=== PATIENT | female | born 1985 | race American Indian/Alaskan Native ===

== ENCOUNTER 2017-09-04 08:30 | Emergency (ER) | payer SELFPAY ==
[2017-09-04 08:43] VITALS: BP 119/69
--- NOTE | 2017-09-04 09:33 | Emergency Department Report ---
Chief Complaint: Headache Stated Complaint: MIGRAINE HEADACHE Time Seen by Provider: 09/04/17 09:20 - HPI History of Present Illness: 32-year-old female presents to the emergency department with complaint of intermittent headaches over the past 3 weeks. The patient seems to think that it is related to mold that she has in her apartment. When she spends night at another person's house or her parents house, she does not have headaches but then as soon as she returns to her home she developed some. They are frontal and bitemporal and often very intense. Sometimes is associated with some blurry vision and today she had an episode of nausea and vomiting. The patient also has a sore throat and her daughter was recently diagnosed with strep. The patient herself denies any past medical history. She has been taking some Goody's powder and Tylenol for her headaches which only works transiently, if at all. - ROS Review of Systems: Positive for headache, intermittent blurry vision, nausea with vomiting, sore throat Negative for chest pain, shortness of breath, rash, eye pain or any neurological deficits. - Exam Vital Signs: Vital Signs 09/04/17 08:34 Temperature 98.6 F Pulse Rate 92 H Respiratory 16 Rate Blood Pressure 119/69 O2 Sat by Pulse 100 Oximetry Physical Exam: Pupils equal reactive to light bilaterally. Extraocular motion intact. Oropharynx appears clear. She has a slightly raspy voice. Heart and lungs are normal auscultation. MSE screening note: Focused history and physical exam performed. Due to findings the following was ordered: I will order a urine test so that a CT scan of the head without contrast can be done secondary to the three-week history of headaches with some associated blurry vision. ED Disposition for MSE Condition: Stable Referrals: PRIMARY CARE, [Primary Care Provider] - 3-5 Days
[2017-09-04 10:04] LABS: HCG Qualitative,Urine Negative (Negative)
--- NOTE | 2017-09-04 10:04 | Emergency Department Report ---
ED Headache HPI - General Chief Complaint: Headache Stated Complaint: MIGRAINE HEADACHE Time Seen by Provider: 09/04/17 09:20 Source: patient, family - History of Present Illness Initial Comments: 32-year-old female presents to the emergency department with complaint of intermittent headaches over the past 3 weeks. The patient seems to think that it is related to mold that she has in her apartment. When she spends night at another person's house or her parents house, she does not have headaches but then as soon as she returns to her home she developed some. They are frontal and bitemporal and often very intense. Sometimes is associated with some blurry vision and today she had an episode of nausea and vomiting. The patient also has a sore throat and her daughter was recently diagnosed with strep. The patient herself denies any past medical history. She has been taking some Goody's powder and Tylenol for her headaches which only works transiently, if at all. She denies any fever or chills. Denies any neck pain or stiffness. Denies any trauma. Pain is 8 out of 10 achy sometimes and throbbing sometimes. Today she said it is more achy. Timing/Duration: 1 week, increasing, waxing and waning Quality: severe, achy, throbbing, other (pounding) Head Injury Location: frontal, temporal Recent Head Trauma: head trauma > 24 hrs ago Modifying Factors: improves with: movement, other (headache is relieved when patient removed herself from environment that has mold) Associated Symptoms: fatigue, nasal congestion, nasal drainage, other (patient reports feeling tired all the time). denies: confusion, facial pain, fever/ chills, flushing, loss of consciousness, nausea/vomiting, numbness in legs/feet , rash, seizures, sinus infection, stiff neck, vision changes, weakness Allergies/Adverse Reactions: Allergies No Known Allergies Allergy (Unverified 09/04/17 08:43) Home Medications: Ambulatory Orders Amoxicillin/K Clav Tab [Augmentin 875 mg] 1 tab PO Q12HR 10 Days #20 tab Cetirizine HCl [ZyrTEC] 10 mg PO QAM 14 Days #14 capsule 09/04/17 Fluticasone [Flonase] 1 spray NS QDAY 14 Days #1 bottle 09/04/17 Prednisone 50 mg PO QAM 5 Days #5 tablet 09/04/17 ED Review of Systems ROS: Stated complaint: MIGRAINE HEADACHE Other details as noted in HPI Comment: All other systems reviewed and negative Constitutional: no symptoms reported Eyes: other (blurred vision). denies: eye pain, eye discharge ENT: congestion, other (nasal drainage). denies: ear pain, throat pain, dental pain, epistaxis Respiratory: no symptoms reported Cardiovascular: denies: chest pain, palpitations, dyspnea on exertion, edema, syncope, paroxysmal nocturnal dyspnea Gastrointestinal: denies: abdominal pain, nausea, diarrhea, constipation, hematemesis, melena, hematochezia Genitourinary: denies: as per HPI, dysuria, hematuria, abnormal menses Musculoskeletal: denies: back pain, joint swelling, arthralgia, myalgia Skin: denies: rash Neurological: headache, weakness, other (dizziness). denies: numbness, paresthesias, confusion, abnormal gait, vertigo ED Past Medical Hx - Past Medical History Previous Medical History?: No - Surgical History Past Surgical History?: Yes - Family History Family history: no significant - Social History Smoking Status: Never Smoker Substance Use Type: None - Medications Home Medications: Home Medications Medication Instructions Recorded Confirmed Last Taken Type Amoxicillin/K Clav Tab [Augmentin 1 tab PO Q12HR 10 Days #20 tab 09/04/17 Unknown Rx 875 mg] Cetirizine HCl [ZyrTEC] 10 mg PO QAM 14 Days #14 capsule 09/04/17 Unknown Rx Fluticasone [Flonase] 1 spray NS QDAY 14 Days #1 bottle 09/04/17 Unknown Rx Prednisone 50 mg PO QAM 5 Days #5 tablet 09/04/17 Unknown Rx ED Physical Exam - General Limitations: No Limitations General appearance: alert, in no apparent distress - Head Head exam: Present: atraumatic, normocephalic, normal inspection, other (normal exam) - Eye Eye exam: Present: normal appearance, PERRL, EOMI. Absent: nystagmus, periorbital swelling, periorbital tenderness Pupils: Present: normal accommodation - ENT ENT exam: Present: normal orophraynx, TM's normal bilaterally (bilateral TM congestion that erythema), normal external ear exam, other (nasal mucosa pale and boggy with clear drainage) - Neck Neck exam: Present: normal inspection, full ROM, other (no C-spine tenderness). Absent: tenderness, meningismus, lymphadenopathy - Respiratory Respiratory exam: Present: normal lung sounds bilaterally. Absent: respiratory distress, wheezes, rales, rhonchi, stridor, chest wall tenderness, accessory muscle use, decreased breath sounds, prolonged expiratory - Cardiovascular Cardiovascular Exam: Present: regular rate, normal rhythm, normal heart sounds - GI/Abdominal GI/Abdominal exam: Present: soft, normal bowel sounds. Absent: distended, tenderness, guarding, organomegaly, mass, bruit, pulsatile mass, hernia - Extremities Exam Extremities exam: Present: normal inspection, full ROM, normal capillary refill , other (ambulates without any difficulties). Absent: tenderness, pedal edema, joint swelling, calf tenderness - Back Exam Back exam: Present: normal inspection, full ROM. Absent: tenderness, CVA tenderness (R), CVA tenderness (L), muscle spasm, paraspinal tenderness, vertebral tenderness, rash noted - Neurological Exam Neurological exam: Present: alert, oriented X3, normal gait. Absent: motor sensory deficit, reflexes normal - Expanded Neurological Exam Expanded Neurological exam: Absent: innattentive, memory loss-remote event, memory loss- recent event, ataxia, receptive aphasia, expressive aphasia, total aphasia, tremor, protecting the airway Patient oriented to: Present: person, place, time Speech: Present: fluid speech Cranial nerves: EOM's Intact: Normal, Gag Reflex: Normal, Tongue Deviation: Normal, Nystagmus: Normal, Facial Sensation: Normal Cerebellar function: Romberg: Normal Upper motor neuron: Pronator Drift: Normal, Sensory Extinction: Normal Sensory exam: Upper Extremity Light Touch: Normal, Upper Extremity Temperature: Normal, UE 2 Point Discrimination: Normal, Lower Extremity Light Touch: Normal, Lower Extremity Temperature: Normal, LE 2 Point Discrimination: Normal Motor strength exam: RUE: 5, LUE: 5, RLE: 5, LLE: 5 Best Eye Response (Tad): (4) open spontaneously Best Motor Response (Tad): (6) obeys commands Best Verbal Response ([place]): (5) oriented Tad Total: 15 - Psychiatric Psychiatric exam: Present: normal affect, normal mood - Skin Skin exam: Present: warm, dry, intact, normal color. Absent: rash ED Course Vital Signs 09/04/17 08:34 Temperature 98.6 F Pulse Rate 92 H Respiratory 16 Rate Blood Pressure 119/69 O2 Sat by Pulse 100 Oximetry - Reevaluation(s) Reevaluation #1: 09/04/17 10:55 Patient stable throughout ED stay. Reevaluation #2: 09/04/17 11:09 Patient reports red rash to left forearm since she's been sitting and waiting room. She was given Decadron 10 mg IM and will be sent home and steroids. ED Medical Decision Making - Radiology Data Radiology results: report reviewed CT scan of the had brain without contrast revealed no intracranial or extracranial abdomen allergy - Medical Decision Making Course: Patient here complaining exposure to mold in her house this caused her to headache, tiredness, nasal congestion or runny nose. She said when she leaves the house she is better but when she goes back on her symptoms come back. Patient is complaint headache and weakness and CT scan of the head was done and showed no abnormalities. She has had strep done which is negative due to exposure from daughter. HCG is negative. Diagnosis, treatment plan and follow-up with patient. She developed erythema area, circular cyst scattered to left forearm while waiting in emergency room. She was given Decadron 10 mg IM. No respiratory involvement. She voiced understanding patient discharged home with prescription for Augmentin, Flonase, and Zyrtec. She is to follow up with her primary care physician in 2-3 days and if she does not have one to follow up at [facility]. Critical care attestation.: If time is entered above; I have spent that time in minutes in the direct care of this critically ill patient, excluding procedure time. ED Disposition Clinical Impression: Mold exposure, Rash and nonspecific skin eruption Headache Qualifiers: Headache type: unspecified Headache chronicity pattern: episodic headache Intractability: not intractable Qualified Code(s): R51 - Headache Allergic rhinitis due to allergen Qualifiers: Allergic rhinitis trigger: unspecified Allergic rhinitis seasonality: unspecified seasonality Qualified Code(s): J30.9 - Allergic rhinitis, unspecified Disposition: - TO HOME OR SELFCARE Is pt being admited?: No Does the pt Need Aspirin: No Condition: Undetermined Instructions: Allergic Rhinitis (ED), Acute Headache (ED), Acute Rash (ED) Additional Instructions: These follow-up with primary care physician as discussed. Medication as prescribed See information on Mold reporting to [facility] If you feel like you have been exposed to mold and they're causing his symptoms then, he'll need to remove himself from environment that has mold. Prescriptions: Amoxicillin/K Clav Tab [Augmentin 875 mg] 1 tab PO Q12HR 10 Days #20 tab Cetirizine HCl [ZyrTEC] 10 mg PO QAM 14 Days #14 capsule Fluticasone [Flonase] 1 spray NS QDAY 14 Days #1 bottle Prednisone 50 mg PO QAM 5 Days #5 tablet Referrals: PRIMARY CARE, [Primary Care Provider] - 2-3 Days [facility] [Outside] - 2-3 Days Forms: Work/School Release Form(ED)
--- NOTE | 2017-09-04 10:45 | Cat Scan Report ---
CT HEAD WITHOUT CONTRAST: 09/04/17 08:30:00 CLINICAL: Headache. TECHNIQUE: 2.5-mm noncontrast scans. COMPARISON:None FINDINGS: The ventricles and sulci are normal for age. No abnormal density. No mass or mass effect. No hemorrhage, edema or extra-axial collection. The sinuses are clear. Normal orbits and soft tissues. The calvarium and skull base are intact. IMPRESSION: Normal head CT.
[2017-09-04] MEDS ORDERED: DECADRON IM STA (11:08)
== END 2017-09-04 12:24 | disposition home or self-care (01) ==
LOC: ED 08:30
DX: J30.9 Allergic rhinitis, unspecified (principal); R21 Rash and other nonspecific skin eruption
CPT/HCPCS: 70450; 81025; 87116; 87430; 96372; 99284; J1100